=== PATIENT | female | born 1965 | race Caucasian/White ===

== ENCOUNTER 2017-08-22 02:48 | Emergency (ER) | payer BC ==
[~2017-08-22] VITALS: Ht 170.2 cm; Wt 70.9 kg
[~2017-08-22 02:48] MED LIST: NOHOMEMEDS
[2017-08-22 03:28] LABS: HEMATOCRIT 37.1 % (36.0-46.0); HEMOGLOBIN 12.7 G/DL (11.9-15.5); MCH 31.4 PG (29.0-34.0); MCHC 34.2 G/DL (30.0-36.0); MCV 91.6 FL (83-99); PLATELET COUNT 223 K/uL (156-360); RBC DIS.WIDTH-CV 12.8 % (11.8-14.6); RBC DIS.WIDTH-SD 42.7 % (39-53); RED BLOOD COUNT 4.05 M/uL (3.80-5.20); WHITE BLOOD COUNT 12.4 K/uL (4.1-10.2)
[2017-08-22 03:36] LABS: CHLORIDE 104 mEq/L (99-109); POTASSIUM 3.1 mEq/L (3.7-5.4); SODIUM 141 mEq/L (136-147)
[2017-08-22 03:37] LABS: GLUCOSE 145 mg/dL (70-99)
[2017-08-22 03:41] LABS: CREATININE 0.7 mg/dL (0.6-1.3); GFR ESTIMATE (CALCULATED) > 59 mL/min/
[2017-08-22 03:42] LABS: UREA NITROGEN (BUN) 11 mg/dL (9-23)
[2017-08-22 04:35] VITALS: BP 114/51
== END 2017-08-22 04:45 | disposition home or self-care (01) ==
LOC: EME 02:48
PROVIDERS: Emergency Medicine
DX: F10.129 Alcohol abuse with intoxication, unspecified (principal); I10 Essential (primary) hypertension; F41.9 Anxiety disorder, unspecified; F17.200 Nicotine dependence, unspecified, uncomplicated
CPT/HCPCS: 71045; 80048; 83605; 85027; 87040; J2405; J7030

== ENCOUNTER → 2018-02-16 | Outpatient (CLI) | payer BC | END | disposition home or self-care (01) | LOC: CDC 10:56 | DX: Z01.810 Encounter for preprocedural cardiovascular examination (principal) | CPT/HCPCS: 93000 ==